=== PATIENT | male | born 1990 | race African-American/Black ===

== ENCOUNTER 2022-03-26 22:14 | Emergency (ER) | payer MEDICAID, OTHER ==
[~2022-03-26] VITALS: Ht 182.9 cm; Wt 95.3 kg
[2022-03-26] MEDS ORDERED: TETANUS-DIPTH-ACEL PERTUSSIS 0.5ML SYR Tdap IM ONE (23:15)
[2022-03-26] MEDS ORDERED: LIDOCAINE 1% HCL (LOCAL ANESTH.) INJ 20ML MDV ID ONE (23:15)
[2022-03-26] MEDS ORDERED: MORPHINE SULFATE 4 MG/ML SYR/VIAL IM ONE (23:15)
[2022-03-27 03:01] VITALS: BP 118/67
== END 2022-03-27 03:02 | disposition home or self-care (01) ==
LOC: ER 22:14 → EDBD 22:14 → ER 03-27 03:02
DX: S71.131A Puncture wound without foreign body, right thigh, initial encounter (principal); X58.XXXA Exposure to other specified factors, initial encounter; Y93.89 Activity, other specified; Y92.89 Other specified places as the place of occurrence of the external cause; Y99.8 Other external cause status
CPT/HCPCS: 71045; 73552; 73590; 74018; 90471; 90715; 96372; 99284; J2270